=== PATIENT | male | born 1955 | race Caucasian/White ===

== ENCOUNTER 2019-08-24 10:34 | Outpatient (CLI) | payer MEDICARE ==
[~2019-08-24] VITALS: Ht 170.2 cm; Wt 124.5 kg
--- NOTE | ~2019-08-24 | HEMODYNAMI ---
PATIENT:CODY PACE MEDICAL RECORD: [id number] : 51 LOCATION:[facility] ADMISSION DATE: 08/24/19 Generatedon:08/24/201914:22 Patient name: CODY PACE Patient #: [id number] : 1955 Date of study: 08/24/2019 Page: Of Hemodynamic Procedure Report Patient Data Patient Demographics Procedure consent was obtained First Name: CODY Gender: Male Last Name: SANJEEV : 1955 Middle Initial: MEME Age: 63 year(s) Patient #: [id number] Race: SSN: [id number] Additional ID: [id number] Contact details Address: [address] [place] [address] State: [place] City: [place] Zip code: [address] Past Medical History Allergies Allergen Reaction Date Comments Reported Codeine 10/22/2015 Penicillins 10/22/2015 Other allergy 08/24/2019 TERESA FAITH Admission Admission Data Admission Date: 08/24/2019 Admission Time: 10:34 Arrival Date: 08/24/2019 Arrival Time: 0:00 Admit Source: Other Insurance Payor: Private health insurance Height (in.): 68 BSA: 2.33 (m2) Height (cm.): 172.72 BMI: 41.2 (kg/m2) Weight (lbs.): 271 Weight (kg.): 122.92 Lab Results Lab Result Date: 08/24/2019 Lab Result Time: 0:00 Biochemistry Name Units Result Min Max BUN mg/dl 17 --(---*)-- 7 18 Creatinine mg/dl 0.9 --(-*--)-- 0.6 1.3 eGFR ml/min 90 --(*---)-- 90 120 NONAFRICAN CBC Name Units Result Min Max Hematocrit % 44.1 --(*---)-- 42 54 Hemoglobin g/dl 15 --(-*--)-- 13.5 17.5 Procedure Procedure Types Cath Procedure Diagnostic Procedure LHC Coronaries w/Grafts Sedation Charges Moderate Sedation up to 15 minutes Procedure Description Procedure Date Procedure Date: 08/24/2019 Procedure Start Time: 13:59 Procedure End Time: 14:19 Procedure Staff Name Function Jensen Briceno MD Performing Physician Cathryn Renee RT Monitor Peri Cedillo RT Scrub Brian Mandujano RN Nurse Procedure Data Cath Procedure Fluoroscopy Diagnostic fluoroscopy Total fluoroscopy Time: 6.5 time: 6.5 min min Diagnostic fluoroscopy Total fluoroscopy dose: dose: 1155 mGy 1155 mGy Contrast Material Contrast Material Type Amount (ml) Isovue 300 92 Entry Location Entry Primary Successful Side Size Upsize Upsize Entry Closure Succes sful Closure Location (Fr) 1 (Fr) 2 (Fr) Remarks Device Remarks Femoral Right 5 Fr Exoseal artery Estimated blood loss: 10 ml Diagnostic catheters Device Type Used For End Catheter Placement MULTIPACK JL 4.0 5Fr Procedure catheter DIAGNOSTIC AR MOD 5Fr Procedure Catheter ([id number]) DIAGNOSTIC IM 5Fr Procedure catheter ([id number]) DIAGNOSTIC IMT 5Fr Procedure Catheter ([id number]) MULTIPACK Pigtail 5 Fr Procedure catheter Procedure Complications No complications Procedure Medications Medication Administration Route Dosage Oxygen 8 l/min Lidocaine 2% added to field 20 Heparin Flush Bag added to field 2 bags (1000units/500ml NS) 0.9% NaCl I.V. 100 ml/hr Versed I.V. 2 mg Fentanyl I.V. 100 mcg Versed I.V. 1 mg Fentanyl I.V. 50 mcg Versed I.V. 1 mg Fentanyl I.V. 50 mcg Hemodynamics Rest BSA: 2.33 (m2) HGB: 15 (g/dl) O2 Consumption: Estimated: 270.57 (ml/min) O2 Cons umption indexed: Estimated:116.12 (ml/min/m) Heart Rate: 69 (bpm) Pressure Samples Time Site Value (mmHg) Purpose Heart Use Rate(bpm) 14:15 LV 137/5,22 Snapshot 75 14:15 LV 137/0,21 Snapshot 76 14:16 AO 139/63(94) Pullback 74 14:16 LV 141/1,22 Pullback 74 Gradients Valve Time Site 1 Site 2 Mean SEP/DFP Peak To Heart Use (mmHg) (sec/min) Peak Rate (mmHg) (bpm) Aortic 14:16 LV AO 14 16 2 74 141/1,22 139/63(94) Calculations Valve P-P Mean Valve Index Valve Source Name Gradient Area Flow (cm2) Aortic 2 14 2 14 Snapshots Pre Cath Intra NCS Post Cath Vital Signs Time Heart Resp SPO2 etCO2 NIBP (mmHg) Rhythm Pain Sedation Rate (ipm) (%) (mmHg) Status Level (bpm) 13:47:44 72 28 94 18.1 148/74(118) NSR 0 (11) 10(A) , No pain 13:52:04 68 22 97 0 144/73(122) NSR 0 (11) 10(A) , No pain 13:56:24 67 22 98 0 143/71(112) NSR 0 (11) 9(A) , No pain 14:00:44 67 19 98 27.9 132/75(107) NSR 0 (11) 9(A) , No pain 14:05:00 76 20 97 15.8 134/75(111) NSR 0 (11) 9(A) , No pain 14:09:18 72 19 98 12.8 133/74(102) NSR 0 (11) 9(A) , No pain 14:13:33 74 18 97 2.2 130/72(98) NSR 0 (11) 10(A) , No pain 14:17:51 81 20 98 35.5 145/73(119) NSR 0 (11) 10(A) , No pain Medications Time Medication Route Dose Verified Delivered Reason Notes Effe ctiveness by by 13:50:50 Oxygen simple 8 Jensen Buffie used for mask l/min Janak Mandujano RN procedure 13:50:56 Lidocaine 2% added 20ml Jensen Jensen for local to vial Janak Briceno MD anesthetic field 13:51:04 Heparin Flush added 2 Jensen Jensen used for Bag to bags Janak Briceno MD procedure (1000units/500ml field NS) 13:51:13 0.9% NaCl I.V. 100 Jensen Buffie Per ml/hr Janak Mandujano RN physician 13:53:35 Versed I.V. 2 mg Jensen Buffie for Janak Mandujano RN sedation 13:53:40 Fentanyl I.V. 100 Jensen Buffie for mcg Janak Mandujano RN sedation 13:57:42 Versed I.V. 1 mg Jensen Buffie for Janak Mandujano RN sedation 13:57:45 Fentanyl I.V. 50 Jensen Buffie for mcg Janak Mandujano RN sedation 14:12:46 Versed I.V. 1 mg Jensen Buffie for Janak Mandujano RN sedation 14:12:50 Fentanyl I.V. 50 Jensen Buffie for mcg Janak Mandujano RN sedation Procedure Log Time Note 13:25:41 Arrival Date: 08/24/2019 12:00:00 AM 13:25:42 Brian Mandujano RN sent for patient. Start room use. 13:25:43 Admit Source: Other 13:26:03 Insurance Payor : Private health insurance 13:26:11 Patient Height : 68 inches 13:26:18 Patient Weight : 271 lbs 13:30:14 Lab Result : Creatinine 0.9 mg/dl 13:30:14 Lab Result : BUN 17 mg/dl 13:30:14 Lab Result : Hematocrit 44.1 % 13:30:14 Lab Result : eGFR NONAFRICAN 90 ml/min 13:30:14 Lab Result : Hemoglobin 15 g/dl 13:30:44 Procedure Status Elective Heart Cath (OP). 13:30:45 Time tracking: Regular hours (M-F 7:00 - 5:00) 13:30:49 Plan of Care:Hemodynamics will remain stable., Cardiac rhythm will remain stable., Comfort level will be maintained., Respiratory function will remain adequate., Patient/ family verbilizes understanding of procedure., Procedure tolerated without complication., Recovers from procedure without complications.. 13:31:15 H&P Date Dictated: 08/24/2019 Within 30 days and on chart., H&P Addendum completed by physician on day of procedure. (MUST COMPLETE FOR ALL OUTPATIENTS). 13:31:26 Patient allergic to Other allergyCODEINE, PCN 13:35:22 Was the patient premedicated? Yes 13:35:52 1) 90+ Normal kidney functon but urine findings or structural abnormalities or genetic trait point to kidney disease. 13:35:57 Maximum allowable contrast dose (3.7 X eGFR X 0.75)249 ml. 13:36:20 Sedation plan: IV Moderate Sedation Medication:Versed, Fentanyl 13:36:33 Patient received from Pre/Post Procedure Room to CCL 1 Alert and oriented. Tansferred to table in Supine position. 13:36:36 Signed procedure consent form obtained from patient. 13:36:37 Warm blankets applied, and lupe hugger turned on for patient comfort. 13:36:37 Correct patient and procedure confirmed by team. 13:36:38 ECG and BP/O2 sat monitors applied to patient. 13:46:30 Vital chart was started 13:46:32 Baseline sample Acquired. 13:46:37 Rhythm: sinus rhythm 13:46:38 Full Disclosure recording started 13:46:40 Pre-procedure instructions explained to patient. 13:46:43 Family in waiting room. 13:46:46 Patient NPO since Midnight. 13:46:49 Is the patient allergic to Iodine/contrast media? No. 13:46:51 Is patient on blood thinner?No 13:46:55 Patient diabetic? Yes. 13:46:57 If diabetic: On Metformin? Yes 13:47:02 If on Metformin: Last Dose? 08/23/2019 13:47:10 Snore? Yes 13:47:11 Sleep apnea? Yes 13:47:16 Dentures? No ? 13:47:21 Patient pain scale 0/10 ?. 13:47:29 IV patent on arrival in left forearm with 0.9% NaCl at [facility]. 13:47:33 Lab results completed and on chart. 13:48:13 Stress Test: no; N/A ? 13:48:18 Risk of Mortality: .1 13:48:22 Risk of blood transfusion: .2 13:48:26 Risk of LOLA: .1 13:48:31 Right groin area was prepped with chlora-prep and draped in sterile fashion 13:48:37 Alarms reviewed by R. N. 13:48:38 Sharps counted by scrub and verified by R.N. 13:48:50 Physician arrived 13:48:51 --------ALL STOP TIME OUT------ 13:49:18 Final Timeout: patient, procedure, and site verified with staff and physician. All members of the team are in agreement. 13:49:20 Right groin site verified by team. 13:49:24 Fire Safety Assessment: A--An alcohol-based skin anteseptic being used preoperatively., C--Open oxygen or nitrous oxide is being used., D--An ESU, laser, or fiber-optic light is being used. 13:49:35 Physical assessment completed. ASA score P 2 - A patient with mild systemic disease as per Jensen Briceno MD. 13:49:44 Use device set Femoral Dx 13:49:48 ACIST Syringe (04841) opened to sterile field. 13:49:48 Bag Decanter (2002S) opened to sterile field. 13:49:49 Medline Cath Pack ([id number]) opened to sterile field. 13:49:50 ACIST Hand Control (30533) opened to sterile field. 13:49:51 ACIST Manifold (87053) opened to sterile field. 13:49:52 DIAGNOSTIC Multipack 5Fr catheter set ([id number]) opened to sterile field. 13:49:56 SHEATH 5FR [place] (CNM595) opened to sterile field. 13:49:57 EMERALD Guide Wire (960-267) opened to sterile field. 13:50:50 Oxygen 8 l/min simple mask was administered by Brian Mandujano RN; used for procedure; Verbal order read back and verified. 13:50:56 Lidocaine 2% 20ml vial added to field was administered by Jensen Briceno MD; for local anesthetic; Verbal order read back and verified. 13:51:04 Heparin Flush Bag (1000units/500ml NS) 2 bags added to field was administered by Jensen Briceno MD; used for procedure; Verbal order read back and verified. 13:51:13 0.9% NaCl 100 ml/hr I.V. was administered by Brian Mandujano RN; Per physician; Verbal order read back and verified. 13:53:35 Versed 2 mg I.V. was administered by Brian Mandujano RN; for sedation; Verbal order read back and verified. 13:53:40 Fentanyl 100 mcg I.V. was administered by Brian Mandujano RN; for sedation; Verbal order read back and verified. 13:57:42 Versed 1 mg I.V. was administered by Brian Mandujano RN; for sedation; Verbal order read back and verified. 13:57:45 Fentanyl 50 mcg I.V. was administered by Brian Mandujano RN; for sedation; Verbal order read back and verified. 13:58:01 Procedure started. 13:59:06 Local anesthetic to right femoral artery with Lidocaine 2% by Jensen Briceno MD.INITIAL ACCESS ONLY 14:01:05 A 5 Fr sheath was inserted into the Right Femoral artery 14:01:12 J wire advanced. 14:01:32 A MULTIPACK JL 4.0 5Fr catheter was advanced over the wire and used for Procedure. 14:03:42 LCA angiography performed. 14:03:46 Catheter removed. 14:04:07 A DIAGNOSTIC AR MOD 5Fr Catheter ([id number]) was advanced over the wire and used for Procedure. 14:04:58 RCA angiography performed. 14:05:47 SVG to RCA angiography performed. 14:06:46 SVG to Circ angiography performed. 14:06:52 SVG to Diag angiography performed. 14:07:57 Catheter exchanged over wire. 14:08:10 A DIAGNOSTIC IM 5Fr catheter ([id number]) was advanced over the wire and used for Procedure. 14:11:36 Catheter exchanged over wire. 14:12:26 A DIAGNOSTIC IMT 5Fr Catheter ([id number]) was advanced over the wire and used for Procedure. 14:12:46 Versed 1 mg I.V. was administered by Brian Mandujano RN; for sedation; Verbal order read back and verified. 14:12:50 Fentanyl 50 mcg I.V. was administered by Brian Mandujano RN; for sedation; Verbal order read back and verified. 14:13:11 ANNE to LAD angiography performed. 14:14:08 Catheter removed. 14:14:18 A MULTIPACK Pigtail 5 Fr catheter was advanced over the wire and used for Procedure. 14:14:30 LV gram done using BHANDARI 14:16:04 EF : 50 % 14:16:24 Catheter removed. 14:16:32 EXOSEAL 5Fr (EX500) opened to sterile field. 14:16:48 Sheath removed intact; hemostasis achieved with Exoseal to the Right Femoral artery. 14:16:52 Procedure ended.(Physican Out) 14:17:04 Fluoroscopy time 06.50 minutes. 14:17:10 Flurop Dose total: 1155 14:17:10 Fluoroscopy dose: 1155 mGy 14:17:27 Dose Area Product 5875 mGy/cm. 14:17:34 Contrast amount:Isovue 300 92ml. 14:17:37 Maximum allowable dose exceeded? No. 14:17:39 Sharps counted by scrub and verified by R.N. 14:17:40 Insertion/operative site no bleeding no hematoma. 14:17:45 Post right femoral artery:stable 14:17:59 Post procedure rhythm: unchanged. 14:18:07 Estimated blood loss: 10 ml 14:18:10 Post procedure instruction explained to patient.Patient verbalizes understanding. 14:18:30 Procedure type changed to Cath procedure, Diagnostic procedure, LHC, Coronaries w/Grafts, Sedation Charges, Moderate Sedation up to 15 minutes 14:18:32 Procedure and supply charges have been captured, reviewed, submitted and are correct. 14:19:04 Procedure Complication : No complications 14:19:07 Vital chart was stopped 14:19:09 [facility] Findings: mild to moderate CAD (<70%) 14:19:14 Operative report dictated upon procedure completion. 14:19:15 See physician's report for complete and final results. 14:19:17 Report given to Pre/Post Procedure Room. 14:19:20 Patient transfered to Pre/Post Procedure Room with Stretcher. 14:19:23 Procedure ended. 14:19:23 Full Disclosure recording stopped 14:19:27 End room use (Document Last) 14:20:53 End room use (Document Last) 14:21:34 End room use (Document Last) Device Usage Item Name Manufacture Quantity Catalog Number Hospital Part Current Minim al Lot# / Charge Number Stock Stock Serial# Code ACIST Acist 1 59146 891388 624027 682518 20 Syringe Medical (45248) Systems Inc Bag Microtek 1 586663 13995 917708 5 Decanter Medical Inc. () Medline Medline 1 [id number] 353786 93223 478595 5 Cath Pack ([id number]) ACIST Hand Acist 1 33203 685308 669446 618398 5 Control Medical (88355) Systems Inc ACIST Acist 1 62540 544925 228004 560644 5 Manifold Medical (61377) Systems Inc DIAGNOSTIC Cardinal 1 [id number] 289141 57230 509246 30 Multipack Health 5Fr catheter set (AG3216) SHEATH 5FR Terumo 1 LSS976 891776 513007 837565 5 [place] (TDE511) EMERALD Cardinal 1 481-035 161514 740393 055346 5 Guide Wire Health (303-723) MULTIPACK Cardinal 1 739487 5 JL 4.0 5Fr Health catheter DIAGNOSTIC Cardinal 1 [id number] 267353 001867 295338 15 AR MOD 5Fr Health Catheter (723881G) DIAGNOSTIC Cardinal 1 [id number] 878923 731727 471324 5 IM 5Fr Health catheter (568167M) DIAGNOSTIC [place] 1 [id number] 330683 224274 72586 5 IMT 5Fr Scientific Catheter ([id number]) MULTIPACK Cardinal 1 801861 5 Pigtail 5 Health Fr catheter EXOSEAL 5Fr Cardinal 1 EX500 696010 738270 598440 10 (EX500) Health Signature Audit [place] Stage Time Signature Unsigned Intra-Procedure 08/24/2019 Cathryn Renee 2:20:53 PM RT(R) Intra-Procedure 08/24/2019 Brian Mandujano RN 2:21:34 PM Intra-Procedure 08/24/2019 Jensen Briceno MD 2:22:35 PM [place] [address] [place] [address]
[~2019-08-24 10:34] MED LIST: ASPIRIN325 MG PO; BAYER CHEWABLE81 MG PO; DIABETA5 MG PO; GLUCOPHAGE500 MG PO; K-TAB10 MEQ PO; LASIX40 MG PO; METOPROLOL TART50 MG PO; MOBIC7.5 MG PO; NORMODYNE / TR200 MG PO; NORVASC10 MG PO; PLAVIX75 MG PO; PRILOSEC20 MG PO; PRINIVIL20 MG PO; ZOCOR5 MG PO
[2019-08-24] MEDS ORDERED: HYDROCODON-ACE1 EA10 (12:34)
[2019-08-24] MEDS ORDERED: TEMOVATE30 GM TOPICAL (12:36)
[2019-08-24] MEDS ORDERED: JARDIANCE10 MG PO (12:36)
[2019-08-24] MEDS ORDERED: GLIPIZIDE10 MG PO (12:37)
[2019-08-24 12:58] VITALS: BP 156/71; Ht 170.2 cm; Wt 124.5 kg
[2019-08-24 13:07] LABS: BASOPHILS 0.2 % (0-2); EOSINOPHILS 0.9 % (0-7); HEMATOCRIT 44.1 % (42.0-54.0); IMMATURE GRANULOCYTES 0.3 % (0-5); LYMPHOCYTES 16.9 % (15-50); MCH 31.3 pg (26.0-34.0); MCV 91.9 fL (80.0-100.0); MEAN PLATELET VOLUME 10.4 fL (7.4-10.4); MONOCYTES 7.4 % (2-11); NEUTROPHILS 74.3 % (40-80); PLATELET COUNT 180 10x3/uL (130-400); RDW 13.2 % (11.5-14.5); WBC 6.3 10x3/uL (4.8-10.8)
[2019-08-24 13:15] LABS: CALC OSMOLALITY 290 mosm/kg (275-300); CARBON DIOXIDE 26.9 mmol/L (21.0-32.0); CHLORIDE - SERUM 107 mmol/L (98-107); CREATININE - SERUM 0.9 mg/dL (0.6-1.3); GLUCOSE 132 mg/dL (74-106); POTASSIUM - SERUM 4.1 mmol/L (3.5-5.1); SODIUM 144 mmol/L (136-145); UREA NITROGEN 17 mg/dL (7-18); eGFR NON AFRICAN AMERICAN 90 mL/min (90-120)
[2019-08-24 13:29] LABS: ALT (SGPT) 36 U/L (10-68); CHOL - HDL RATIO 3.7 ratio (2.3-4.9); CHOLESTEROL, TOTAL 117 mg/dL (0-200); HDL CHOLESTEROL 32 mg/dL (32-96); LDL CHOLESTEROL 61 mg/dL (0-100); LDL-HDL RATIO 1.9 ratio (1.5-3.5); TRIGLYCERIDE 124 mg/dL (30-200)
--- NOTE | 2019-08-24 14:47 | NUR ---
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 PT IS ALERT AND DENIES ANY C/O. HOB IS FLAT, DRESSING IS CDI TO RIGHT GROIN, PEDAL PULSES PALPABLE. VSS. BED LOCKED AND LOW, SIDE RAILS UP X2, CALL LIGHT IN REACH. FAMILY AT BEDSIDE.
--- NOTE | 2019-08-24 14:56 | NUR ---
DR MCDONALD HAS ROUNDED ON PT. PT IS ALERT AND DENIES ANY C/O. DRESSING IS CDI TO RIGHT GROIN, AREA IS SOFT AND NONTENDER. PEDAL PULSES PALPABLE. NSR, RATE 67. BP IS 146/68. HOB FLAT.
--- NOTE | 2019-08-24 15:24 | NUR ---
PT IS ALERT, DENIES ANY C/O. HOB IS FLAT. DRESSING CDI, PEDAL PULSES PALPABLE. VSS.
--- NOTE | 2019-08-24 16:38 | NUR ---
1545 HOB ELEVATED 30 DEGREES AND SANDWICH/ PO FLUIDS SERVED. DRESSING CDI RIGHT GROIN, PEDAL PULSES PALPABLE. VSS. 1610 HOB FULLY ELEVATED. PT HAS PEGGY 100% OF SANDWICH AND PO FLUIDS. DRESSING CDI RIGHT GROIN, PEDAL PULSES PALPABLE. PT IS ALERT AND DENIES ANY C/O 1635 DC INSTRUCTIONS REVIEWED WITH PT AND WHO VERBALIZE UNDERSTANDING. IV DC'D WITH CATH INTACT. DRESSING REMAINS CDI TO RIGHT GROIN, AREA SOFT AND NONTENDER. PEDAL PULSES PALPABLE. PT DRESSING FOR DC WITH ASSIST.
--- NOTE | 2019-08-24 16:41 | NUR ---
PT HAS AMBULATED TO THE BATHROOM AND VOIDED QS. IS ALERT AND DENIES ANY C/O. PT ESCORTED TO PRIVATE AUTO VIA WC BY NURSE WITH DRIVING HIM HOME. HAS DC INSTRUCTIONS AND ALL PERSONAL BELONGINGS.
== END 2019-08-24 16:40 | disposition home or self-care (01) ==
LOC: D.CATH 10:34
PROVIDERS: ATTEND Internal Medicine Cardiovascular Disease
DX: I25.110 Atherosclerotic heart disease of native coronary artery with unstable angina pectoris (principal)